=== PATIENT | female | born 1985 | race Caucasian/White ===

== ENCOUNTER 2024-09-08 11:33 | Inpatient (IN) | payer BC ==
[2024-09-08] MEDS ORDERED: Sodium Chloride 0.9% 10 ML Syringe FLUSH PRN ×3 (11:44→17:14)
[2024-09-08] MEDS: Terbutaline 1 MG/ML SDV SUBCUT ONE (12:24)
[2024-09-08] MEDS ORDERED: Ondansetron 4 MG/2 ML SDV IVPUSH PRN ×2 (12:45→15:09)
[2024-09-08] MEDS ORDERED: Lactated Ringers 1,000 ML IV SCH (12:45)
[2024-09-08] MEDS: Lactated Ringers 1,000 ML IV SCH (13:01)
[2024-09-08 13:14] LABS: HEMATOCRIT 40.7 % (37.0-47.0); HEMOGLOBIN 13.1 gm/dl (12.0-16.0); MEAN CORPUSCULAR HGB CONC 32.2 g/dl (32.0-36.0); MEAN CORPUSCULAR VOLUME 83.9 fl (83.0-99.0); MEAN PLATELET VOLUME 10.2 fl (9.4-12.3); PLATELET COUNT,PLT 307 K/mm3 (150-400); RED BLOOD CELL COUNT 4.85 M/mm3 (4.10-5.30); WHITE BLOOD CELL COUNT,WBC 13.62 K/mm3 (3.9-11.3)
[2024-09-08] MEDS ORDERED: Ondansetron 4 MG/2 ML SDV ONE (13:24)
[2024-09-08] MEDS ORDERED: ceFAZolin 2 GM Vial ONE (13:24)
[2024-09-08] MEDS ORDERED: Morphine PF 10 MG/10 ML SDV ONE (13:24)
[2024-09-08] MEDS ORDERED: Phenylephrine 1% 10 MG/ML SDV ONE (13:24)
[2024-09-08 13:27] LABS: CREATININE 0.7 mg/dL (0.55-1.02); EST CRCL DRUG DOSING (CG) 93.17 mL/min
[2024-09-08] MEDS: Metoclopramide 10 MG/2 ML SDV IVPUSH ONE (14:32)
[2024-09-08] MEDS: Citric Acid/Sodium Citrate Solution 30 ML Cup PO ONE (14:32)
[2024-09-08] MEDS ORDERED: Oxytocin/0.9 % Sodium Chloride 30 UNIT/500 ML BAG IV SCH (14:45)
[2024-09-08] MEDS ORDERED: fentaNYL 100 MCG/2 ML SDV IVPUSH PRN (15:09)
[2024-09-08] MEDS ORDERED: Ketorolac 30 MG/ML SDV ONE (15:09)
[2024-09-08] MEDS ORDERED: diphenhydrAMINE 50 MG/ML SDV IVPUSH PRN (15:09)
[2024-09-08] MEDS ORDERED: Lactated Ringers 1,000 ML ONE (15:23)
[2024-09-08 15:47] LABS: CREATININE,URINE RAND 180.6 mg/dL (30.0-125.0); PROTEIN CREATININE RATIO,URINE 177.7 mg/g (0-149); PROTEIN,URINE RANDOM 32.1 mg/dL (0.0-11.8)
[2024-09-08] MEDS: ceFAZolin 2 GM in Sodium Chloride 0.9% 50 ML IV ONE (15:56)
[2024-09-08] MEDS ORDERED: ePHEDrine 50 MG/ML SDV IVPUSH PRN (17:14)
[2024-09-08] MEDS ORDERED: Naloxone 0.4 MG/ML SDV IVPUSH PRN (17:14)
[2024-09-08] MEDS: Dextrose 5%-Lactated Ringers 1,000 ML IV SCH (17:39)
[2024-09-08] MEDS ORDERED: Sodium Chloride 0.9% 10 ML Syringe FLUSH SCH ×2 (21:00)
[2024-09-08] MEDS: Ketorolac 30 MG/ML SDV IVPUSH SCH (21:18)
[2024-09-09 06:13] LABS: HEMATOCRIT 32.1 % (37.0-47.0); MEAN CORPUSCULAR HEMOGLOBIN 26.9 pg (28.0-32.0); MEAN CORPUSCULAR HGB CONC 32.4 g/dl (32.0-36.0); MEAN CORPUSCULAR VOLUME 83.2 fl (83.0-99.0); MEAN PLATELET VOLUME 10.2 fl (9.4-12.3); PLATELET COUNT,PLT 247 K/mm3 (150-400); RED BLOOD CELL COUNT 3.86 M/mm3 (4.10-5.30); WHITE BLOOD CELL COUNT,WBC 12.98 K/mm3 (3.9-11.3)
[2024-09-09 06:15] LABS: HEMOGLOBIN 10.4 gm/dl (12.0-16.0)
[2024-09-09] MEDS: FLUoxetine 20 MG Cap PO SCH (12:43)
[2024-09-09] MEDS: buPROPion 150 MG Tab.ER PO SCH (12:44)
[2024-09-09] MEDS: Docusate Sodium 100 MG Cap PO PRN (13:44)
[2024-09-09] MEDS: Ibuprofen 600 MG Tab PO SCH (15:43)
[2024-09-09] MEDS: Acetaminophen/oxyCODONE 325-5 MG Tab PO PRN (16:22)
[2024-09-10] MEDS: Acetaminophen/oxyCODONE 325-5 MG Tab PO PRN (03:26)
[2024-09-10] MEDS: Ibuprofen 600 MG Tab PO SCH (11:46)
== END 2024-09-11 11:30 | disposition home or self-care (01) | DRG 540 ==
LOC: JD.OBCHECK 11:33 → JD.OB 11:44
PROVIDERS: ADMIT Obstetrics & Gynecology; ATTEND Obstetrics & Gynecology
PROC: 10D00Z1 Extraction of Products of Conception, Low, Open Approach (ICD-10-PCS; principal; 2024-09-08 14:30)
DX: O13.4 Gestational [pregnancy-induced] hypertension without significant proteinuria, complicating childbirth (principal); O32.1XX0 Maternal care for breech presentation, not applicable or unspecified; Z37.0 Single live birth; Z3A.37 37 weeks gestation of pregnancy; Z90.89 Acquired absence of other organs; Z98.890 Other specified postprocedural states; Z90.49 Acquired absence of other specified parts of digestive tract
CPT/HCPCS: 36415; 59025; 59412; 82565; 82570; 84156; 84450; 84460; 85027; 86592; A9270-GY; J0690; J1885; J2274; J2371; J2405; J2765; J3105; J7120; J7121